=== PATIENT | female | born 1950 | race Caucasian/White ===

== ENCOUNTER → 2018-10-29 | Outpatient (CLI) | payer MEDICARE ==
[~2018-10-29] MED LIST: ASPIR 8181 MG PO; CIPROFLOXACIN500 M1 PO; COREG12.5 MG PO; COZAAR 50 MG TA50 M2 PO; EFFIENT10 MG PO; FLEXERIL PO; HYDROCODONE-AP1 EAC6 PO; LEVOTHROID150 MC1 PO; LEVOTHYROXINE 0.15MG PO; LIPITOR 20 MG T20 M1 PO; NITROGLYCERIN0.4 MG SUBLING; PRED FORTE 1% EY5 M1 OP; PROPRANOLOL 4040 M1 PO; TYLENOL325 MG PO; VALIUM10 MG; VICODIN ES TAB1 EACH
== END ==
LOC: M.RAD 11:42
DX: M51.35 Other intervertebral disc degeneration, thoracolumbar region (principal); M43.26 Fusion of spine, lumbar region; G89.29 Other chronic pain

== ENCOUNTER → 2019-10-15 | Outpatient (CLI) | payer MEDICARE | LOC: M.MRI 08:08 | DX: M51.34 Other intervertebral disc degeneration, thoracic region (principal); G89.29 Other chronic pain ==

== ENCOUNTER → 2019-11-16 | Outpatient (CLI) | payer MEDICARE ==
[~2019-11-16] MED LIST changes: +ADVIL200 M3 PO; +CARVEDILOL25 MG PO; -COREG12.5 MG PO; +MELOXICAM15 MG PO; +NORVASC 2.5 MG2.5 M1 PO
== END ==
LOC: M.PC 09:10
DX: M47.814 Spondylosis without myelopathy or radiculopathy, thoracic region (principal); M51.34 Other intervertebral disc degeneration, thoracic region; M79.18 Myalgia, other site; Z98.890 Other specified postprocedural states; Z88.5 Allergy status to narcotic agent; Z90.710 Acquired absence of both cervix and uterus

== ENCOUNTER 2019-12-03 11:10 | Observation (INO) | payer MEDICARE ==
[~2019-12-03] VITALS: Ht 162.6 cm; Wt 90.3 kg
[~2019-12-03 11:10] MED LIST changes: -LEVOTHYROXINE 0.15MG PO; +SYNTHROID150 MCG PO
[2019-12-03 11:13] VITALS: BP 186/91
[2019-12-03 11:37] LABS: ABSOLUTE BASOPHILS 0.1 thou/uL (0.0-0.2); ABSOLUTE EOSINOPHILS 0.5 thou/uL (0.0-0.7); ABSOLUTE LYMPHOCYTES 2.7 thou/uL (0.8-5.3); ABSOLUTE MONOCYTES 0.9 thou/uL (0.0-1.2); ABSOLUTE NEUTROPHILS 8.4 thou/uL (1.6-8.1); BASOPHILS 0.9 %; EOSINOPHILS 4.1 %; HEMATOCRIT 41.4 % (37.0-47.0); LYMPHOCYTES 21.6 %; MCH 28.4 pg (26.0-34.0); MCHC 33.7 g/dL (28.0-37.0); MCV 84.2 fL (80.0-100.0); MONOCYTES 7.3 %; MPV 7.4 fl. (7.2-11.1); NUCLEATED RBCS 0 /100WBC; PLATELET COUNT* 409 thou/uL (150-400); POLYS 66.1 %; RBC 4.92 mil/uL (4.20-5.00); RDW-CV 14.2 % (10.5-14.5); WBC 12.7 thou/uL (4.0-11.0)
[2019-12-03 11:41] LABS: CALCIUM 8.6 mg/dL (8.5-10.1); CREATININE 0.7 mg/dL (0.6-1.3)
[2019-12-03 11:47] LABS: APTT 26.8 Seconds (25.0-31.3); PROTIME 10.4 Seconds (9.20-11.50)
[2019-12-03 11:52] LABS: ALBUMIN 3.7 g/dL (3.4-5.0); TOTAL BILIRUBIN 0.5 mg/dL (<0.1-1.0); TOTAL PROTEIN 8.2 g/dL (6.4-8.2)
--- NOTE | 2019-12-03 12:52 | EKG ---
[place] [address] ELECTROCARDIOGRAM REPORT Name: JHOANA GARCIA Room: [facility]#: [id number] Admission: 12/03/19 Attend Phys: Discharge: Date of : 54 Date of Service: 12/03/19 1114 Report #: [id number] THIS REPORT FOR: //name// [facility] ED Test Date: 2019-12-03 Test Time: 11:14:54 Pat Name: JHOANA GARCIA Department: Room: Gender: F Appeals Nurse: [facility] : 1950 Requested By: Gerber Forrester Order Number: [id number] MD: Asher Flor Measurements Intervals Arthur Rate: 67 P: 44 WV: 186 QRS: 36 QRSD: 92 T: 41 QT: 432 QTc: 456 Interpretive Statements Sinus rhythm Consider inferior infarct Electronically Signed On 12-03-2019 12:51:20 MARBLE RUBBER by Asher Flor [email or web address] <ELECTRONICALLY SIGNED> By: Asher Flor MD, [facility] 12/03/19 1251 1114 1114 Asher Flor MD, FACC /EPI
[2019-12-03 15:19] LABS: ANION GAP 11 mmol/L (7-16); CHLORIDE 104 mmol/L (98-107); CHOLESTEROL 123 mg/dL (<200); CO2 26 mmol/L (21-32); HDL CHOLESTEROL 39 mg/dL (>40); LDL CHOLESTEROL 57 mg/dL (<100); SODIUM 141 mmol/L (136-145); TC:HDL 3.2 Ratio (Not establshd); TRIGLYCERIDE 137 mg/dL (<150); VLDL 27 mg/dL (<40)
[2019-12-03 15:20] LABS: SERUM ASSESSMENT CLEAR
[2019-12-03 15:27] LABS: CALCIUM 8.9 mg/dL (8.5-10.1); CREATININE 0.7 mg/dL (0.6-1.3); POTASSIUM 3.9 mmol/L (3.5-5.1)
--- NOTE | 2019-12-03 15:51 | 2DMMODE ---
[place] [address] 2 D/M-MODE ECHOCARDIOGRAM Name: JHOANA GARCIA Room: [address] IN [facility]#: [id number] Admission: 12/03/19 Attend Phys: Desmond Barnes Discharge: Date of : 54 Date of Service: 12/03/19 1550 Report #: [id number] THIS REPORT FOR: cc: Rosa Yap MD, Lin W. MD Liston, Michael J. MD [facility] ~ APPROVED REPORT Study performed: 12/03/2019 15:08:10 EXAM: Comprehensive 2D, Doppler, and color-flow Echocardiogram Patient Location: In-Patient Room #: ER Status: routine BSA: 1.91 HR: 76 bpm BP: 160/82 mmHg Rhythm: NSR Other Information Study Quality: Good Indications Chest Pain 2D Dimensions IVSd: 9.84 (7-11mm) LVOT Diam: 20.74 (18-24mm) LVDd: 45.04 mm PWd: 9.33 (7-11mm) Ascending Ao: 28.68 (22-36mm) LVDs: 24.71 (25-40mm) Aortic Root: 31.00 mm Volumes Left Atrial Volume (Systole) LA ESV Index: 13.40 mL/m2 Aortic Valve AoV Peak Winston.: 1.03 m/s AO Peak Gr.: 4.27 mmHg LVOT Max P.93 mmHg AO Mean Gr.: 2.57 mmHg LVOT Mean P.50 mmHg LVOT Max V: 0.86 m/s AO V2 VTI: 22.20 cm LVOT Mean V: 0.56 m/s BRYAN (VTI): 2.79 cm2 LVOT V1 VTI: 18.36 [place] [address] 2 D/M-MODE ECHOCARDIOGRAM Name: JHOANA GARCIA Room: [address] IN ..#: [id number] Admission: 12/03/19 Attend Phys: Desmond Barnes Discharge: Date of : 54 Date of Service: 12/03/19 1550 Report #: [id number] Mitral Valve E/A Ratio: 0.77 MV Decel. Time: 275.57 ms MV E Max Winston.: 0.52 m/s MV PHT: 79.91 ms MVA (PHT): 2.75 cm2 TDI E/Lateral E': 8.67 E/Medial E': 5.78 Medial E' Winston.: 0.09 m/s Lateral E' Winston.: 0.06 m/s Pulmonary Valve PV Peak Winston.: 0.85 m/s PV Peak Gr.: 2.87 mmHg Left Ventricle The left ventricle is normal size. There is normal LV segmental wall motion. There is normal left ventricular wall thickness. Left ventricular systolic function is normal. LVEF is 60-65%. Grade I - abnormal relaxation pattern. Right Ventricle The right ventricle is normal size. The right ventricular systolic function is normal. Atria The left atrium size is normal. The right atrium size is normal. Aortic Valve The aortic valve is normal in structure. No aortic regurgitation is present. There is no aortic valvular stenosis. Mitral Valve The mitral valve is normal in structure. Mild mitral regurgitation. No evidence of mitral valve stenosis. Tricuspid Valve The tricuspid valve is normal in structure. Unable to assess PA pressure. Trace tricuspid regurgitation. Pulmonic Valve The pulmonary valve is normal in structure. Trace pulmonic regurgitation. [place] [address] 2 D/M-MODE ECHOCARDIOGRAM Name: JHOANA GARCIA Room: [address] [place] [facility]#: [id number] Admission: 12/03/19 Attend Phys: Desmond Barnes Discharge: Date of : 54 Date of Service: 12/03/19 1550 Report #: [id number] The aortic root is normal in size. IVC is normal in size and collapses >50% with inspiration. Pericardium There is no pericardial effusion. <Conclusion> The left ventricle is normal size. There is normal left ventricular wall thickness. Left ventricular systolic function is normal. LVEF is 60-65%. Grade I - abnormal relaxation pattern. Mild mitral regurgitation. Trace tricuspid regurgitation. IVC is normal in size and collapses >50% with inspiration. <ELECTRONICALLY SIGNED> By: Marck Ingram MD, FACC 12/03/19 1550 1550 1550 Marck Ingram MD, FACC /INF
[2019-12-03 16:13] VITALS: BP 149/82
[2019-12-03 16:28] VITALS: BP 167/93
[2019-12-03 16:40] VITALS: BP 164/83
[2019-12-03 20:00] VITALS: BP 144/87
[2019-12-03 23:55] VITALS: BP 135/72
[2019-12-04 05:00] VITALS: BP 129/80
[2019-12-04 05:12] LABS: ABSOLUTE BASOPHILS 0.1 thou/uL (0.0-0.2); ABSOLUTE EOSINOPHILS 0.4 thou/uL (0.0-0.7); ABSOLUTE LYMPHOCYTES 2.5 thou/uL (0.8-5.3); ABSOLUTE MONOCYTES 1.1 thou/uL (0.0-1.2); ABSOLUTE NEUTROPHILS 8.9 thou/uL (1.6-8.1); BASOPHILS 0.9 %; EOSINOPHILS 3.1 %; HEMATOCRIT 40.3 % (37.0-47.0); HEMOGLOBIN 13.2 gm/dL (12.0-15.0); MCH 27.9 pg (26.0-34.0); MCHC 32.8 g/dL (28.0-37.0); MONOCYTES 8.2 %; MPV 7.6 fl. (7.2-11.1); NUCLEATED RBCS 0 /100WBC; PLATELET COUNT* 376 thou/uL (150-400); POLYS 68.8 %; RBC 4.74 mil/uL (4.20-5.00); RDW-CV 14.1 % (10.5-14.5); WBC 12.9 thou/uL (4.0-11.0)
[2019-12-04 05:16] LABS: CALCIUM 9.1 mg/dL (8.5-10.1); CREATININE 0.7 mg/dL (0.6-1.3); POTASSIUM 3.6 mmol/L (3.5-5.1)
[2019-12-04 05:19] LABS: APTT 26.8 Seconds (25.0-31.3); PROTIME 10.7 Seconds (9.20-11.50)
[2019-12-04 05:26] LABS: ALBUMIN 3.5 g/dL (3.4-5.0); TOTAL BILIRUBIN 0.5 mg/dL (<0.1-1.0); TOTAL PROTEIN 7.5 g/dL (6.4-8.2)
[2019-12-04 08:00] VITALS: BP 124/80
--- NOTE | 2019-12-04 12:47 | CARDNUC ---
[place] [address] CARDIAC NUCLEAR IMAGING REPORT Name: JHOANA GARCIA Room: [address] M.R.#: [id number] Admission: 12/03/19 Attend Phys: Desmond Barnes Discharge: Date of : 54 Date of Service: 12/04/19 1246 Report #: [id number] THIS REPORT FOR: cc: Rosa Yap MD, Lin W. MD Liston, Michael J. MD [facility] ~ APPROVED REPORT Imaging Protocol: Stress Tc-99mm Only Study performed: 12/03/2019 16:54:00 Indication: Chest pain Patient Location: In-Patient Room #: 231 Stress Tech: Marielos Aguirre Stress Nurse: Marialuisa Nino RN NM Tech:JOANIE Grant Ht: 5 ft 4 in Wt: 195 lbs BSA: 1.94 m2 BMI: 33.46 Medical History Medical History: CAD s/p stent Medications: atorvastatin, carvedilol, losartan, amlodipine, asa-81 Allergies: codeine Cardiac Risk Factors: Age, HTN, Hyperlipidemia Previous Cardiac Procedures: PCI Exercise History: Indeterminate Pharmacologic Stress Pharmacologic stress test was performed by injecting Regadenoson 0.4 mg IV push over 10-15 seconds immediately followed by the intravenous injection of 31.4 mCi of Tc-99m Sestamibi. Time of stress injection: 944 Date: 12/04/2019 Administration Route: IV Administration Site: Right Arm Gated Stress SPECT was performed 40 minutes after stress injection. The images were gated to evaluate regional wall motion and calculate left ventricular ejection fraction. Prone imaging was performed[place] [address] CARDIAC NUCLEAR IMAGING REPORT Name: JHOANA GARCIA [address] [id number] Admission: 12/03/19 Attend Phys: Desmond Barnes Discharge: Date of : 54 Date of Service: 12/04/19 1246 Report #: [id number] Stress Test: Pharmacologic stress testing performed using 0.4 mg of regadenoson per 5 mL given IV over 10 seconds. Reason for pharmacologic stress test: physical limitation. HR Max Heart Rate (APMHR): 154 bpm Resting HR: 77 bpm Target HR (85% APMHR): 130 bpm Max HR Achieved: 120 bpm % of APMHR: 77 Recovery HR: 106 bpm BP Resting BP: 137/73 mmHg Max BP: 135/72 mmHg Recovery BP: 125/75 mmHg ECG Resting ECG: Sinus Rhythm Stress ECG: Sinus Tachycardia ST Change: None Arrhythmia: None Recovery ECG: Sinus Rhythm Recovery ST Change: None Recovery Arrhythmia: None Clinical Reason for Termination: Completed protocol Exercise duration: 0 min sec Exercise capacity: 1 METs The patient tolerated Lexiscan infusion without significant cardiac symptoms. Nurse Comments pt has back problems and is unable to walk on treadmill Stress ECG Conclusion The baseline 12-lead EKG shows sinus rhythm without significant ST segment or T wave abnormality. EKGs obtained during and post Lexiscan infusion show sinus rhythm and sinus tachycardia with no significant ST segment or T-wave changes compared to baseline. There were no stress-induced arrhythmias. Study Quality Study: Good Artifact: No artifact Study Data Post stress, the left ventricular ejection was [facility] [address] [place] [address] CARDIAC NUCLEAR IMAGING REPORT Name: JHOANA GARCIA Room: [address] M.R.#: [id number] Admission: 12/03/19 Attend Phys: Desmond Barnes Discharge: Date of : 54 Date of Service: 12/04/19 1246 Report #: [id number] 80%.. Perfusion Post Lexiscan stress perfusion images show uniform uptake of the radioisotope throughout the myocardium. There were no defects to suggest infarct or ischemia. Wall Motion Normal left ventricular wall motion. Nuclear Conclusion ECG Findings: negative for ischemia Clinical Findings: negative for ischemia Nuclear Findings: negative for ischemia Exercise Capacity: not assessed Left Ventricular Function: normal Risk Study: low Perfusion images show no defect to suggest infarct or ischemia. Left ventricular systolic function is normal on gated studies. This is a low risk study. <Conclusion> The baseline 12-lead EKG shows sinus rhythm without significant ST segment or T wave abnormality. EKGs obtained during and post Lexiscan infusion show sinus rhythm and sinus tachycardia with no significant ST segment or T-wave changes compared to baseline. There were no stress-induced arrhythmias. <ELECTRONICALLY SIGNED> By: Marck Ingram MD, FACC 12/04/19 1246 1246 1246 Marck Ingram MD, FACC /INF
[2019-12-04 14:00] VITALS: BP 124/80
== END 2019-12-04 15:13 | disposition home or self-care (01) ==
LOC: M.ERS 11:10 → M.2W 14:16 → M.TBA-ER 14:16 → M.2W 16:22
PROVIDERS: Emergency Medicine Emergency Medical Services; ADMIT Internal Medicine
DX: R07.89 Other chest pain (principal); R51 Headache; I10 Essential (primary) hypertension; N39.0 Urinary tract infection, site not specified; E03.9 Hypothyroidism, unspecified; E78.00 Pure hypercholesterolemia, unspecified

== ENCOUNTER → 2020-02-19 | Outpatient (CLI) | payer MEDICARE ==
[2020-02-19 08:15] LABS: ALBUMIN 3.4 g/dL (3.4-5.0); CALCIUM 8.6 mg/dL (8.5-10.1); CREATININE 0.8 mg/dL (0.6-1.3); POTASSIUM 3.8 mmol/L (3.5-5.1); TOTAL BILIRUBIN 0.5 mg/dL (<0.1-1.0); TOTAL PROTEIN 7.6 g/dL (6.4-8.2)
== END ==
LOC: M.LAB 12-28 15:04 → M.MRI 01-01 07:45 → M.LAB 01-01 07:45
PROVIDERS: Psychiatry & Neurology Neuromuscular Medicine
DX: H93.11 Tinnitus, right ear (principal); R20.2 Paresthesia of skin; M79.2 Neuralgia and neuritis, unspecified; H20.021 Recurrent acute iridocyclitis, right eye; I10 Essential (primary) hypertension

== ENCOUNTER → 2020-10-17 | Outpatient (CLI) | payer MEDICARE | LOC: M.RAD 12:11 | PROVIDERS: ATTEND Orthopaedic Surgery | DX: M19.012 Primary osteoarthritis, left shoulder (principal); M85.831 Other specified disorders of bone density and structure, right forearm ==

== ENCOUNTER → 2020-12-12 | Outpatient (CLI) | payer MEDICARE ==
--- NOTE | 2020-12-12 13:26 | 2DMMODE ---
[place] [address] 2 D/M-MODE ECHOCARDIOGRAM Name: GARCIAJHOANA Lizette Room: [facility]#: [id number] Admission: 12/12/20 Attend Phys: Tashia Díaz Discharge: Date of : 54 Date of Service: 12/12/20 1325 Report #: [id number] THIS REPORT FOR: cc: Rosa Yap MD, Lin W. MD Holkins, John M. MD [facility] ~ APPROVED REPORT Study performed: 12/12/2020 10:31:45 EXAM: Comprehensive 2D, Doppler, and color-flow Echocardiogram Patient Location: Out-Patient BSA: 1.89 HR: 74 bpm BP: 128/70 mmHg Other Information Study Quality: Good Indications CAD Hypertension/HDD 2D Dimensions IVSd: 9.88 (7-11mm) LVOT Diam: 20.36 (18-24mm) LVDd: 43.46 mm PWd: 9.67 (7-11mm) Ascending Ao: 27.67 (22-36mm) LVDs: 24.54 (25-40mm) Aortic Root: 31.21 mm Volumes Left Atrial Volume (Systole) LA ESV Index: 12.60 mL/m2 Aortic Valve AoV Peak Winston.: 1.00 m/s AO Peak Gr.: 3.97 mmHg LVOT Max P.45 mmHg AO Mean Gr.: 2.55 mmHg LVOT Mean P.51 mmHg LVOT Max V: 0.93 m/s AO V2 VTI: 20.15 cm LVOT Mean V: 0.55 m/s BRYAN (VTI): 2.68 cm2 LVOT V1 VTI: 16.60 [place] [address] 2 D/M-MODE ECHOCARDIOGRAM Name: JHOANA GARCIA Room: [facility] Justino#: [id number] Admission: 12/12/20 Attend Phys: Tashia Díaz Discharge: Date of : 54 Date of Service: 12/12/20 1325 Report #: [id number] E/A Ratio: 0.64 MV Decel. Time: 372.95 ms MV E Max Winston.: 0.43 m/s MV PHT: 108.16 ms MVA (PHT): 2.03 cm2 TDI E/Lateral E': 5.38 E/Medial E': 6.14 Medial E' Winston.: 0.07 m/s Lateral E' Winston.: 0.08 m/s Pulmonary Valve PV Peak Winston.: 0.70 m/s PV Peak Gr.: 1.94 mmHg Tricuspid Valve RAP Estimate: 5.00 mmHg TR Peak Gr.: 17.37 mmHg RVSP: 22.37 mmHg PA Pressure: 22.37 mmHg Left Ventricle The left ventricle is normal size. There is normal LV segmental wall motion. There is normal left ventricular wall thickness. Left ventricular systolic function is normal. The left ventricular ejection fraction is within the normal range. LVEF is 55-60%. Grade I - abnormal relaxation pattern. Right Ventricle The right ventricle is normal size. The right ventricular systolic function is normal. Atria The left atrium size is normal. The right atrium size is normal. Aortic Valve Mild aortic valve sclerosis. No aortic regurgitation is present. There is no aortic valvular stenosis. Mitral Valve The mitral valve is normal in structure. Mild mitral regurgitation. No evidence of mitral valve stenosis. Tricuspid Valve The tricuspid valve is normal in structure. [place] [address] 2 D/M-MODE ECHOCARDIOGRAM Name: JHOANA GARCIA Room: [facility]#: [id number] Admission: 12/12/20 Attend Phys: Tashia Díaz Discharge: Date of : 54 Date of Service: 12/12/20 1325 Report #: [id number] Pulmonic Valve The pulmonary valve is normal in structure. Mild pulmonic regurgitation. Great Vessels The aortic root is normal in size. IVC is normal in size and collapses >50% with inspiration. Pericardium There is no pericardial effusion. <Conclusion> The left ventricle is normal size. There is normal left ventricular wall thickness. Left ventricular systolic function is normal. The left ventricular ejection fraction is within the normal range. LVEF is 55-60%. Grade I - abnormal relaxation pattern. The right ventricle is normal size. The left atrium size is normal. Mild aortic valve sclerosis. No aortic regurgitation is present. There is no aortic valvular stenosis. The mitral valve is normal in structure. Mild mitral regurgitation. The tricuspid valve is normal in structure. IVC is normal in size and collapses >50% with inspiration. There is no pericardial effusion. There is normal LV segmental wall motion. <ELECTRONICALLY SIGNED> By: Kauhsal Durán MD, FACC 12/12/20 1325 24 132 Kaushal Durán MD, FACC /INF
== END ==
LOC: M.CRD 10:44
PROVIDERS: ATTEND Internal Medicine
DX: I08.8 Other rheumatic multiple valve diseases (principal); I25.10 Atherosclerotic heart disease of native coronary artery without angina pectoris

== ENCOUNTER → 2020-12-28 | Outpatient (CLI) | payer MEDICARE | LOC: M.ULTRA 08:37 | PROVIDERS: ATTEND Internal Medicine | DX: R10.2 Pelvic and perineal pain (principal) ==